=== PATIENT | female | born 1965 ===

== ENCOUNTER 2018-03-10 16:46 | Emergency (ER) | payer MEDICAID ==
[2018-03-10 16:47] VITALS: BMI 27.4
[2018-03-10 16:57] VITALS: BP 130/81; PULSE 118; RESP 15; TEMP 100.4; O2SAT 100
[2018-03-10] MEDS ORDERED: Penicillin G Benzathine 1.2 Mill Unit/2 ml Syr IM ONE ×2 (17:23→17:35)
--- NOTE | 2018-03-10 17:23 | C.PDOC ---
History Of Present Illness 53 year old female presents to the ED c/o sore throat, subjective fever that started yesterday. Patient reports she has not taken any medications for her symptoms. Patient denies chills, nausea, fever, CP, SOB, weakness, numbness. SORE THROAT, SUBJ FEVER SINCE YHEST. NO SICK CONTACT. NO MEDS TAKEN [employer]. EXAM MILD DIST NONTOXIC HEENT +PHARYNGITIS W EXUDATE, UVULA MIDLINE. NO STRIDOR, DROOL B/L SUBMAND NODES TEND MOBILE NECK SUPPLE REMAINDER NEG Time Seen by Provider: 03/10/18 17:03 Chief Complaint (Nursing): ENT Problem History Per: Patient History/Exam Limitations: no limitations Onset/Duration Of Symptoms: Days Current Symptoms Are (Timing): Still Present Location Of Pain: Throat Sick Contacts (Context): None Associated Symptoms: Fever, Sore Throat Ear Symptoms: Bilateral: None Recent travel outside of the [place]: No Additional History Per: Patient Past Medical History Reviewed: Historical Data, Nursing Documentation, Vital Signs Vital Signs: Last Vital Signs Temp 100.4 F H 03/10/18 16:55 Pulse 118 H 03/10/18 16:55 Resp 15 03/10/18 16:55 BP 130/81 03/10/18 16:55 Pulse Ox 100 03/10/18 17:33 - Medical History PMH: Anemia, Diabetes Denies: Chronic Kidney Disease Surgical History: No Surg Hx Family History: States: Unknown Family Hx - Social History Hx Tobacco Use: No Hx Alcohol Use: No Hx Substance Use: No - Immunization History Hx Tetanus Toxoid Vaccination: No Hx Influenza Vaccination: No Hx Pneumococcal Vaccination: No Review Of Systems Constitutional: Positive for: Fever. Negative for: Chills ENT: Positive for: Throat Pain. Negative for: Nose Discharge, Nose Congestion Respiratory: Negative for: Cough, Shortness of Breath Skin: Negative for: Rash Neurological: Negative for: Weakness, Numbness Physical Exam - Physical Exam Appears: Non-toxic, In Acute Distress Skin: Normal Color, Warm, Dry Head: Atraumatic, Normacephalic Eye(s): bilateral: Normal Inspection Ear(s): Bilateral: Normal Nose: No Discharge Oral Mucosa: Moist Throat: Erythema, Exudate, No Drooling, Other (Uvula midline. No stridor ) Neck: Normal ROM, Supple Lymphatic: Adenopathy (submandibular tenderness) Chest: Symmetrical Cardiovascular: Rhythm Regular, No Murmur Respiratory: Normal Breath Sounds, No Rales, No Rhonchi, No Wheezing Extremity: Normal ROM, No Tenderness, No Swelling Neurological/Psych: Oriented x3, Normal Motor, Normal Sensation Gait: Steady ED Course And Treatment O2 Sat by Pulse Oximetry: 100 (On RA) Pulse Ox Interpretation: Normal Medical Decision Making Medical Decision Making: Impression: sore throat Plan: * penicillin IM * decadron 10 mg IM * Toradol 60 mg IM Disposition Counseled Patient/Family Regarding: Diagnosis, Need For Followup - Disposition Referrals: YOUR,PMD [Other] Disposition: HOME/ ROUTINE Disposition Time: 17:21 Condition: IMPROVED Additional Instructions: USTED ESPINOSA RECIBIDO INYECCIN ESTEROIDE, INYECCIN DE MEDICINA PARA EL DOLOR E INYECCIN ANTIBITICA. MOTRIN Y / O TYLENOL SEGN SE INDIQUE SEGN SEA NECESARIO PARA DOLOR. SEGUIMIENTO CON MIRANDA PMD. Prescriptions: Ibuprofen [Motrin] 600 mg PO Q6 #30 tab Instructions: Sore Throat, Adult (DC) Forms: Torrential (Telugu), Work Excuse Print Language: WOLOF - Clinical Impression Clinical Impression: Pharyngitis - Scribe Statement The provider has reviewed the documentation as recorded by the Scribjosefina Perdomo All medical record entries made by the Scribe were at my direction and personally dictated by me. I have reviewed the chart and agree that the record accurately reflects my personal performance of the history, physical exam, medical decision making, and the department course for this patient. I have also personally directed, reviewed, and agree with the discharge instructions and disposition.
== END 2018-03-10 17:44 | disposition home or self-care (01) ==
LOC: C.ER 16:46
DX: J02.9 Acute pharyngitis, unspecified (principal)
CPT/HCPCS: 96372; 99282; J0561; J1100; J1885

== ENCOUNTER 2019-02-12 15:48 | Outpatient (CLI) | payer MEDICAID | END 2019-02-12 15:49 | disposition home or self-care (01) | LOC: C.MAMMO 15:48 | DX: Z12.31 Encounter for screening mammogram for malignant neoplasm of breast (principal) ==

== ENCOUNTER 2019-03-16 14:20 | Outpatient (CLI) | payer MEDICAID | END 2019-03-16 14:21 | disposition home or self-care (01) | LOC: C.USIC 14:20 | DX: R10.2 Pelvic and perineal pain (principal) ==